=== PATIENT | male | born 1975 | race Caucasian/White ===

== ENCOUNTER 2020-12-07 23:14 | Emergency (ER) | payer OTHER ==
[~2020-12-07] VITALS: Ht 175.3 cm; Wt 106.1 kg
[2020-12-07 23:20] VITALS: BP 149/87
--- NOTE | 2020-12-07 23:25 | NUR ---
PT AMBULATED TO BED 11, STEADY GAIT
--- NOTE | 2020-12-07 23:32 | NUR ---
45 y/o MALE CAME TO THE ED WITH UPPER LEFT LEG PAIN OF 10/10 SINCE November. PT STATES THAT HE HAS "TIGHTNESS, TINGLING AND NUMBNESS IN LEFT UPPER LEG". PT IS A&OX4, ABLE TO AMBULATE WITH A STEADY GAIT. LEFT LEG HAS NO SWELLING, REDNESS. PT IS ABLE TO MOVE/BEND UPPER LEFT LEG. PMH: HTN, BACK INJURY (2018) NKA
--- NOTE | 2020-12-07 23:43 | NUR ---
DR JONES AT BEDSIDE EXAMINING PT
[2020-12-07] MEDS ORDERED: ONDANSETRON 4 MG ODT PO ONE (23:55)
[2020-12-08] MEDS ORDERED: KETOROLAC 30 MG/ML VIAL IM ONE
[2020-12-08] MEDS ORDERED: IBUP-2213 PO (00:03)
--- NOTE | 2020-12-08 00:20 | NUR ---
CLARIFIED WITH DR. JONES THAT ORDERED LABS AND XRAY WAS CANCELLED.
[2020-12-08 00:24] VITALS: BP 149/87
== END 2020-12-08 00:23 | disposition home or self-care (01) ==
LOC: MED 23:14
DX: M54.32 Sciatica, left side (principal); M79.605 Pain in left leg; I10 Essential (primary) hypertension
CPT/HCPCS: 96372; 99283; J1885; 80053; 82140; 83690